=== PATIENT | male | born 1950 | race Caucasian/White ===

== ENCOUNTER → 2017-01-22 | Day surgery (SDC) | payer BC ==
[~2017-01-22] VITALS: Ht 180.3 cm; Wt 122.5 kg
[2017-01-22] VITALS (7 sets, daily range): BP systolic 103–121; BP diastolic 72–86
[~2017-01-22] MED LIST: AMLODIPINE BESY10 MG ORAL; Alfentanil 2ml Inj ONE; Atropine Inj 1mg/10ml Syr IV PRN; BSS 15ml BTL ONE; Bupivacaine 0.75% 30ml vial INJ ONE; DiphenhydrAMINE 50mg/ml Inj IVP PRN; EPINEPHrine 1mg/1ml Amp ONE; Fluorescein Strips ONE; Hydromorphone 0.5mg/0.5ml inj IVP PRN; Ketorolac 30mg Inj IV PRN; Ketorolac 60mg Inj IV PRN; LISINOPRIL40 MG ORAL; LORazepam Inj 2mg/ml 1ml IV PRN; LR 1000ml 1,000 ML IVLG SCH; LR 1000ml ONE; Labetalol 5mg/ml 20ml vial IV PRN; Lidocaine 1% MPF 10mg/ml 5ml ONE; Lidocaine 2% MPF 5ml Vial INJ ONE; Lidocaine 4% Amp ONE; METFORMIN HCL1000 M1 ORAL; Meperidine 25mg/ml Inj IV PRN; Metoclopramide 10mg/2ml Inj IVP PRN; Midazolam 2mg/2ml Inj IVP PRN; Midazolam 2mg/2ml Inj ONE; NS Irrig 1000ml ONE; Norco 5mg/325mg tab ORAL PRN; Norco 7.5mg/325mg tab ORAL PRN; Oxycodone/Acetaminophen 5-325 ORAL PRN; PRADAXA150 MG ORAL; PRISTIQ ER50 MG PO; Povidone-Iodine 5% opth solution ONE; Propofol 10mg/ml 20ml IV ONE; SIMVASTATIN20 MG ORAL; Sodium Hyaluronate 10 mg/ml 0.85ml ONE; Sterile Water Irrig 1000ml IRRIG ONE; TEMAZEPAM30 MG ORAL; Tetracaine 0.5% Opth Soln ONE; Tobradex Opth Oint 3.5gm ONE; Tobradex Opth Susp 2.5ml ONE; fentaNYL 100 mcg/2 mL IV PRN
[2017-01-22] MEDS: Gatifloxacin Opth Solution 0.5% RIGHT EYE SCH ×3 (08:32→08:50)
--- NOTE | 2017-01-22 10:06 | Anethesia Preoperative Eval ---
Anesthesia Pre-op PMH/ROS General Date of Evaluation: Jan 22, 2017 Time of Evaluation: 10:06 Anesthesiologist: Bethany ASA Score: ASA 3 Mallampati Score Class I : Soft palate, uvula, fauces, pillars visible Class II: Soft palate, uvula, fauces visible Class III: Soft palate, base of uvula visible Class IV: Only hard plate visible Mallampati Classification: Class III Surgeon: Osman Diagnosis: Corneal Wound OD Surgical Procedure: Resuture Corneal Wound OD Anesthesia History: none Family History: no anesthesia problems Allergies: Coded Allergies: No Known Allergies (Unverified , 01/21/17) Medications: see eMAR Past Medical History Cardiovascular: Reports: HTN, arrhythmia - AFib, HL Pulmonary: Reports: BRENDON Endocrine: Reports: DM Other: obesity - BMI 38 PSxH Narrative: Cat Ext IOL OD Anesthesia Pre-op Phys. Exam Physician Exam Last Vital Signs Date Time Temp Pulse Resp B/P Pulse Ox O2 Delivery O2 Flow Rate FiO2 01/22/17 08:40 98.1 90 20 118/86 98 Room Air Constitutional: NAD Neurologic: CN 2-12 intact Cardiovascular: RRR Respiratory: CTA Gastrointestinal: S/NT/ND Airway Exam Mallampati Score: Class III MO: limited ROM: limited Teeth: intact Anesthesia Pre-op A/P Risk Assessment & Plan Assessment: ASA 3 Plan: GA Status Change Before Surgery: Tian Callaway MD Jan 22, 2017 10:06
--- NOTE | 2017-01-22 10:07 | 48 Hour Post Anesthesia Eval ---
Post Anesthesia Evaluation Procedure: Resuture Corneal Wound OD Date of Evaluation: Jan 22, 2017 Time of Evaluation: 13:42 Blood Pressure Systolic: 124 0: 83 Pulse Rate: 89 Respiratory Rate: 18 Temperature (Fahrenheit): 98.6 O2 Sat by Pulse Oximetry: 97 Airway: patent Nausea: No Vomiting: No Pain Intensity: 1 Hydration Status: adequate Cardiopulmonary Status: Stable Mental Status/LOC: patient returned to baseline Follow-up Care/Observations: 0 Post-Anesthesia Complications: 0 Follow-up care needed: ready to discharge Tian Sims MD Jan 22, 2017 10:07
--- NOTE | 2017-01-22 10:07 | Immediate Post-Op Evaluation ---
Immediate Post-Op Evalulation Immediate Post-Op Evalulation Procedure: Resuture Corneal Wound OD Date of Evaluation: Jan 22, 2017 Time of Evaluation: 11:38 IV Fluids: 1000 LR Blood Products: 0 Estimated Blood Loss: 1 Urinary Output: 0 Blood Pressure Systolic: 115 Blood Pressure Diastolic: 86 Pulse Rate: 79 Respiratory Rate: 16 O2 Sat by Pulse Oximetry: 96 Temperature (Fahrenheit): 98.2 Pain Score (1-10): 1 Nausea: No Vomiting: No Complications 0 Patient Status: awake, reacts, patent, none Hydration Status: adequate iTan Sims MD Jan 22, 2017 10:07
--- NOTE | 2017-01-22 10:19 | Pre-Procedure Note/Attestation ---
Pre-Procedure Note/Attestation Complete Prior to Procedure Planned Procedure: right Procedure Narrative: resuture of corneal wound right eye3 Indications for Procedure Pre-Operative Diagnosis: corneal wound dehiscence right eye Attestation I attest that I discussed the nature of the procedure; its benefits; risks and complications; and alternatives (and the risks and benefits of such alternatives ), prior to the procedure, with the patient (or the patient's legal wireless sales representative). I attest that, if there was a reasonable possibility of needing a blood transfusion, the patient (or the patient's legal wireless sales representative) was given the [facility] standardized written summary, pursuant to the [place] Sw[place] Blood Safety Act ([place] Health and Safety Code # 1645, as amended). I attest that I re-evaluated the patient just prior to the surgery and that there has been no change in the patient's H&P, except as documented below: Celso Brewer MD Jan 22, 2017 10:19
--- NOTE | 2017-01-22 11:26 | Brief Operative Note ---
Immediate Post Operative Note Operative Note Pre-op Diagnosis: corneal wound dehiscence right eye Procedure: resuture of corneal wound right eye Post-op Diagnosis: same as preop Surgeon: Simin Brewer Certified Athletic Trainer: none Additional Surgeons: none Anesthesiologist: Mc. Flores Anesthesia: MAC Specimen: none Complications: none Condition: stable Estimated Blood Loss: none Drains: none Implant(s) used?: No Celso Brewer MD Jan 22, 2017 11:26
--- NOTE | 2017-01-23 07:58 | Operative Note - Dictated ---
DATE OF OPERATION: 01/22/2017 PREOPERATIVE DIAGNOSIS: Corneal wound dehiscence, right eye. POSTOPERATIVE DIAGNOSIS: Corneal wound dehiscence, right eye. PROCEDURE: Repair of corneal wound dehiscence, right eye. SURGEON: Celso Brewer M.D. ANESTHESIA: MAC. ANESTHESIOLOGIST: Tian Sims M.D. 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 He presented 36 hours ago to our office with complaints of pain and blurred vision. An evaluation concluded that the superior nasal half of the graft-host interface has ruptured. A contact lens was placed, the patient was placed on topical antibiotics and steroids, and was admitted today for the performance of the above procedure. FINDINGS: See indications and diagnoses. DESCRIPTION OF PROCEDURE: The patient received preoperatively topical antibiotics and was brought into the operating room and given satisfactory sedation by Dr. Sims. He then received modified Sanches akinesia using a mixture of half and half Xylocaine 2% with epinephrine and Marcaine 0.75%. He then received topical anesthesia with tetracaine. The patient was then prepped and draped in the usual manner. A wire lid speculum was placed. The microscope was brought into place and the superior nasal area of wound dehiscence was identified. The ocular surface was copiously irrigated with balanced salt solution. Shugarcaine was instilled into the anterior chamber to complete ocular anesthesia and provide some cycloplegia. This was followed with Healon. At this point, the chamber was deep and the wound could be assessed for any further areas of dehiscence, which none were found. A total of four interrupted 10-0 nylon sutures were used to close the wound uneventfully. Prior to tying the last two sutures, Healon was exchanged with balanced salt solution. The last two sutures were then tied and the ends were cut flush to the knots and the knots were retracted towards the peripheral cornea and buried possible. The wound was checked for leaks with fluorescein and none were found. Vigamox drops and TobraDex ointment were applied. The eye was closed. The patch and shield were applied. The patient tolerated well the procedure and left the operating room in good condition. Final diagnoses and procedures are as above. Celso Quincy Brewer DR: MAYDA JOB#: [id number] CC:
== END | disposition home or self-care (01) ==
LOC: SUR 07:55
DX: T81.31XA Disruption of external operation (surgical) wound, not elsewhere classified, initial encounter (principal); Y83.8 Other surgical procedures as the cause of abnormal reaction of the patient, or of later complication, without mention of misadventure at the time of the procedure; Y92.89 Other specified places as the place of occurrence of the external cause; I48.2 Chronic atrial fibrillation; Z79.02 Long term (current) use of antithrombotics/antiplatelets; E11.9 Type 2 diabetes mellitus without complications; Z79.84 Long term (current) use of oral hypoglycemic drugs; I10 Essential (primary) hypertension; E78.5 Hyperlipidemia, unspecified; G47.33 Obstructive sleep apnea (adult) (pediatric); E66.9 Obesity, unspecified; Z68.38 Body mass index [BMI] 38.0-38.9, adult; F32.9 Major depressive disorder, single episode, unspecified; Z98.84 Bariatric surgery status; Z87.891 Personal history of nicotine dependence; Z88.8 Allergy status to other drugs, medicaments and biological substances
CPT/HCPCS: 66250; 82962; J0171; J2250; J2704; J3490; J7120; 94003; 94150